=== PATIENT | female | born 1960 | race African-American/Black ===

== ENCOUNTER 2017-06-04 02:46 | Inpatient (IN) ==
[2017-06-04] MEDS ORDERED: FUROSEMIDE 40 MG/4 ML VIAL IV STA (03:06)
[2017-06-04] MEDS ORDERED: FUROSEMIDE 100 MG/10 ML VIAL ONE (03:18)
[2017-06-04 03:20] LABS: ABG Base Excess -11.2 MMOL/L (-2.5-2.5); ABG HCO3 15.7 MMOL/L (20-26); ABG Oxygen Saturation 99.7 % (95-100); ABG TCO2 17.9 MMOL/L (23-27)
[2017-06-04] MEDS ORDERED: MIDAZOLAM 10 MG/2 ML VIAL ONE (03:21)
[2017-06-04 03:25] LABS: ABG PH 7.116 (7.35-7.45)
[2017-06-04] MEDS ORDERED: NITROGLYCERIN DRIP 50 MG/250 ML BOTTLE IV SCH (03:30)
[2017-06-04] MEDS: PROPOFOL 1,000 MG/100 ML BOTTLE IV SCH ×8 (03:43→22:18)
[2017-06-04 03:53] LABS: Alanine Aminotransferase 66 U/L (13-56); Albumin 2.5 G/DL (3.4-5.0); Alkaline Phosphatase 123 U/L (45-117); Aspartate Amino Transferase 70 U/L (0-37); Bilirubin,Total < 0.39 MG/DL (0.2-1.0); Blood Urea Nitrogen 7 MG/DL (7-18); Calcium 7.9 MG/DL (8.5-10.1); Glucose 242 MG/DL (74-106); Osmolality,Calculated 286.3 MOS/KG (273-304); Potassium 3.2 MMOL/L (3.5-5.1); Sodium 141 MMOL/L (136-145)
[2017-06-04 03:57] LABS: Lactic Acid 8.1 MMOL/L (0.4-2.0)
[2017-06-04 04:09] LABS: Basophils # 0.2 10*3/uL (0.0-0.2); Basophils % 0.6 % (0.0-0.8); Eosinophils # 0.7 10*3/uL (0.0-0.87); Eosinophils % 2.9 % (0.00-10.9); Hematocrit 37.7 VOL% (35.7-47.0); Immature Granulocytes % 3.3 %; Immature Granulocytes Absolute 0.81 #; Lymphocytes # 11.1 10*3/uL (1.4-4.0); Lymphocytes % 44.5 % (21.3-54.2); Mean Corpuscular HGB Conc 29.7 GM/DL (32-36); Mean Corpuscular Hemoglobin 23 PG (27-34); Mean Corpuscular Volume 76.2 FL (87-102); Mean Platelet Volume 11.4 FL (9.6-12.0); NRBC # 0.02 10*3/uL; Neutrophils # 10.1 10*3/uL (1.4-7.4); Neutrophils % 40.7 % (38.7-73.9); Platelet Count 387 T/CUMM (130-400); Red Blood Count 4.95 MC/CUMM (3.8-5.5); Red Cell Distribution Width 17.8 % (9.3-17.3); White Blood Count 24.9 T/CUMM (4-12)
[2017-06-04 04:12] LABS: Hemoglobin 11.2 GM/DL (12.0-16.0)
[2017-06-04] MEDS ORDERED: VECURONIUM 10 MG VIAL IV ONE (04:13)
[2017-06-04] MEDS ORDERED: SODIUM CHLORIDE 0.9% 3,950 ML IV ONE (04:33)
[2017-06-04] MEDS ORDERED: VANCOMYCIN INJ 1,000 MG in SODIUM CHLORIDE 0.9% 250 ML IV STA (04:34)
[2017-06-04] MEDS ORDERED: CEFEPIME 2,000 MG in SODIUM CHLORIDE 0.9% 100 ML IV STA (04:34)
[2017-06-04 04:38] LABS: Apearance,Urine CLOUDY (Clear); Bilirubin,Urine Negative (Negative); Blood, Urine Moderate mg/dL (Negative); Glucose,Urine (UA) 150 mg/dL (Negative); Ketones,Urine Negative (Negative); Nitrite,Urine Negative (Negative); Protein,Urine 100 MG/DL; RBC,Urine 259 /HPF (0-4); Squamous Epithelial Cell,Urine Occasional /HPF (0-10); Urine Color Yellow (Yellow); Urine Specific Gravity 1.008 (1.001-1.035); Urine Urobilinogen < 2.0 EU/DL (0.2-1.0); WBC,Urine 11 /HPF (0-6)
[2017-06-04] MEDS ORDERED: CEFEPIME 2,000 MG in SYRINGE 1 EACH IV ONE (05:00)
[2017-06-04] MEDS ORDERED: ONDANSETRON 4 MG/2 ML VIAL IV PRN (05:26)
[2017-06-04] MEDS ORDERED: ALBUTEROL 2.5 MG/3 ML NEB RESP TX PRN (05:26)
[2017-06-04] MEDS ORDERED: VANCOMYCIN 1,000 MG VIAL ONE (05:36)
[2017-06-04 06:17] LABS: Magnesium 2.1 MG/DL (1.8-2.4); Risk Ratio 1.89; Thyroid Stimulating Hormone 11.9 uIU/ml (0.358-3.74); VLDL CHOLESTEROL 21.8 MG/DL
[2017-06-04] MEDS: SODIUM CHLORIDE 0.9% 1,000 ML IV SCH ×2 (06:19→18:07)
[2017-06-04 06:27] LABS: Ferritin 48.3 ng/ml (8-252); Free T4 (Free Thyroxine) 1.03 NG/DL (0.76-1.46); Troponin I Only < 0.015 NG/ML (0.00-0.045)
[2017-06-04] MEDS ORDERED: CEFEPIME 2,000 MG in SODIUM CHLORIDE 0.9% 100 ML IV SCH (06:30)
[2017-06-04] MEDS ORDERED: PIPERACILLIN/TAZOBACTAM 4,500 MG in SODIUM CHLORIDE 0.9% 100 ML IV SCH (06:30)
[2017-06-04 06:36] LABS: Band Neutrophils 3 % (0-10); Eosinophils 5 % (0-10); Lymphocytes 44 % (20-55); Myelocytes 3 %; Segmented Neutrophils 40 % (50-85); Total Cells Counted 100
[2017-06-04 06:37] LABS: Anisocytosis 1+; Platelet Estimate Normal
[2017-06-04 07:21] LABS: INR 0.9
[2017-06-04] MEDS: ALBUTEROL/IPRATROPIUM 3 ML NEB RESP TX SCH ×3 (08:13→19:58)
[2017-06-04] MEDS ORDERED: GLUCAGON 1 MG VIAL IM PRN (08:22)
[2017-06-04 08:38] LABS: HIV Antigen/Antibody Result Nonreactive (Nonreactive)
[2017-06-04 08:48] LABS: Lactic Acid 2.8 MMOL/L (0.4-2.0)
[2017-06-04 08:58] LABS: Calcium 7.4 MG/DL (8.5-10.1); Magnesium 1.9 MG/DL (1.8-2.4); Osmolality,Calculated 282.3 MOS/KG (273-304); Potassium 3.4 MMOL/L (3.5-5.1)
[2017-06-04] MEDS ORDERED: FUROSEMIDE 40 MG/4 ML VIAL IV SCH (09:00)
[2017-06-04 09:06] LABS: Troponin I Only 0.086 NG/ML (0.00-0.045)
[2017-06-04] MEDS: niCARdipine INJ 25 MG in SODIUM CHLORIDE 0.9% 240 ML IV SCH (10:35)
[2017-06-04] MEDS: CISATRACURIUM 200 MG in SODIUM CHLORIDE 0.9% 100 ML IV SCH (10:48)
[2017-06-04 11:30] LABS: ABG Base Excess 0.7 MMOL/L (-2.5-2.5); ABG HCO3 25.1 MMOL/L (20-26); ABG Oxygen Saturation 99.4 % (95-100); ABG PCO2 37.9 MM HG (35-48); ABG PH 7.426 (7.35-7.45); ABG TCO2 22.2 MMOL/L (23-27)
[2017-06-04] MEDS: VANCOMYCIN INJ 2,000 MG in SODIUM CHLORIDE 0.9% 500 ML IV SCH ×2 (11:33→23:47)
[2017-06-04 11:47] LABS: Basophils % 0.1 % (0.0-0.8); Hematocrit 37.1 VOL% (35.7-47.0); Hemoglobin 11.4 GM/DL (12.0-16.0); Immature Granulocytes % 0.6 %; Immature Granulocytes Absolute 0.12 #; Lymphocytes # 1.1 10*3/uL (1.4-4.0); Lymphocytes % 5.2 % (21.3-54.2); Mean Corpuscular HGB Conc 30.7 GM/DL (32-36); Mean Corpuscular Hemoglobin 23 PG (27-34); Mean Corpuscular Volume 73.2 FL (87-102); Mean Platelet Volume 10.7 FL (9.6-12.0); Monocytes # 0.9 10*3/uL (0.11-0.8); Monocytes % 4.2 % (1.7-12.7); Neutrophils # 18.7 10*3/uL (1.4-7.4); Neutrophils % 89.9 % (38.7-73.9); Platelet Count 334 T/CUMM (130-400); Red Blood Count 5.07 MC/CUMM (3.8-5.5); Red Cell Distribution Width 17.9 % (9.3-17.3); White Blood Count 20.8 T/CUMM (4-12)
[2017-06-04 12:00] LABS: PT Patient Result 10.3 SECS; Partial Thromboplastin Time 26.5 SECS (0-40)
[2017-06-04] MEDS: PIPERACILLIN/TAZOBACTAM 3.375 MG in SODIUM CHLORIDE 0.9% 100 ML IV SCH ×3 (12:00→20:42)
[2017-06-04] MEDS: POTASSIUM CHLORIDE RIDER 20 MEQ in PREMIX 1 EACH IV PRN ×3 (12:07→17:28)
[2017-06-04 12:28] LABS: Alanine Aminotransferase 101 U/L (13-56); Albumin 2.7 G/DL (3.4-5.0); Alkaline Phosphatase 120 U/L (45-117); Amylase 31 U/L (25-115); Aspartate Amino Transferase 65 U/L (0-37); Blood Urea Nitrogen 8 MG/DL (7-18); Calcium 7.9 MG/DL (8.5-10.1); Glucose 143 MG/DL (74-106); Magnesium 1.7 MG/DL (1.8-2.4); Osmolality,Calculated 280.3 MOS/KG (273-304); Potassium 3.5 MMOL/L (3.5-5.1); Sodium 141 MMOL/L (136-145); Total Protein 6.9 G/DL (6.4-8.3)
[2017-06-04 12:31] LABS: Troponin I Only 0.111 NG/ML (0.00-0.045)
[2017-06-04 13:29] LABS: Hypochromasia 2+; Lymphocytes 5 % (20-55); Macrocytosis 1+; Platelet Estimate Adequate; Segmented Neutrophils 90 % (50-85); Total Cells Counted 100
[2017-06-04] MEDS: INSULIN LISPRO 100 UNIT/ML SUBCUT SCH ×5 (14:25→23:29)
[2017-06-04] MEDS ORDERED: INSULIN LISPRO 100 UNIT/ML SUBCUT SCH (14:30)
[2017-06-04] MEDS: NITROGLYCERIN 2% OINT 1 INCH/GM PACK TOP SCH ×2 (14:32→15:11)
[2017-06-04] MEDS: PANTOPRAZOLE 40 MG VIAL IV SCH (15:20)
[2017-06-04] MEDS: ENOXAPARIN 40 MG/0.4 ML SYRINGE SUBCUT SCH (15:22)
[2017-06-04] MEDS: FUROSEMIDE 40 MG/4 ML VIAL IV SCH (15:23)
[2017-06-04] MEDS: HEPARIN/NACL 0.9% 2 UNITS/ML 500 ML IV SCH (15:25)
[2017-06-04 16:45] LABS: Basophils % 0.1 % (0.0-0.8); Hematocrit 37.7 VOL% (35.7-47.0); Hemoglobin 11.9 GM/DL (12.0-16.0); Immature Granulocytes % 0.6 %; Lymphocytes # 1.8 10*3/uL (1.4-4.0); Lymphocytes % 10.4 % (21.3-54.2); Mean Corpuscular HGB Conc 31.6 GM/DL (32-36); Mean Corpuscular Hemoglobin 23 PG (27-34); Mean Corpuscular Volume 72.8 FL (87-102); Mean Platelet Volume 9.9 FL (9.6-12.0); Monocytes # 0.6 10*3/uL (0.11-0.8); Monocytes % 3.4 % (1.7-12.7); Neutrophils # 14.7 10*3/uL (1.4-7.4); Neutrophils % 85.5 % (38.7-73.9); Platelet Count 311 T/CUMM (130-400); Red Blood Count 5.18 MC/CUMM (3.8-5.5); Red Cell Distribution Width 18.1 % (9.3-17.3); White Blood Count 17.2 T/CUMM (4-12)
[2017-06-04 16:55] LABS: PT Patient Result 10.5 SECS; Partial Thromboplastin Time 27.7 SECS (0-40)
[2017-06-04 17:20] LABS: Calcium 7.9 MG/DL (8.5-10.1); Magnesium 1.8 MG/DL (1.8-2.4); Osmolality,Calculated 281.3 MOS/KG (273-304); Potassium 3.3 MMOL/L (3.5-5.1)
[2017-06-04 17:24] LABS: Troponin I Only 0.079 NG/ML (0.00-0.045)
[2017-06-04] MEDS: MINERAL OIL/PETROLATUM OPH OINT 3.5 GM TUBE BOTH EYES SCH (20:41)
[2017-06-04 23:21] LABS: Basophils % 0.2 % (0.0-0.8); Eosinophils % 0.1 % (0.00-10.9); Hematocrit 35.7 VOL% (35.7-47.0); Hemoglobin 11.1 GM/DL (12.0-16.0); Immature Granulocytes % 0.5 %; Immature Granulocytes Absolute 0.07 #; Lymphocytes # 1.9 10*3/uL (1.4-4.0); Lymphocytes % 12.3 % (21.3-54.2); Mean Corpuscular HGB Conc 31.1 GM/DL (32-36); Mean Corpuscular Hemoglobin 23 PG (27-34); Mean Corpuscular Volume 73.2 FL (87-102); Monocytes # 0.9 10*3/uL (0.11-0.8); Monocytes % 5.7 % (1.7-12.7); Neutrophils # 12.5 10*3/uL (1.4-7.4); Neutrophils % 81.2 % (38.7-73.9); Platelet Count 297 T/CUMM (130-400); Red Blood Count 4.88 MC/CUMM (3.8-5.5); Red Cell Distribution Width 17.6 % (9.3-17.3); White Blood Count 15.4 T/CUMM (4-12)
[2017-06-04 23:33] LABS: PT Patient Result 10.4 SECS; Partial Thromboplastin Time 26.9 SECS (0-40)
[2017-06-04 23:34] LABS: Apearance,Urine Slightly Hazy (Clear); Bilirubin,Urine Negative (Negative); Blood, Urine Negative (Negative); Glucose,Urine (UA) Negative (Negative); Ketones,Urine Negative (Negative); Nitrite,Urine Negative (Negative); Protein,Urine Negative; RBC,Urine 1 /HPF (0-4); Urine Color Yellow (Yellow); Urine Specific Gravity 1.017 (1.001-1.035); Urine Urobilinogen < 2.0 EU/DL (0.2-1.0); WBC,Urine 3 /HPF (0-6)
[2017-06-05 00:19] LABS: Calcium 7.4 MG/DL (8.5-10.1); Magnesium 1.7 MG/DL (1.8-2.4); Osmolality,Calculated 282.1 MOS/KG (273-304); Potassium 2.9 MMOL/L (3.5-5.1)
[2017-06-05 00:23] LABS: Troponin I Only 0.038 NG/ML (0.00-0.045)
[2017-06-05] MEDS: PROPOFOL 1,000 MG/100 ML BOTTLE IV SCH ×10 (00:23→23:33)
[2017-06-05] MEDS: POTASSIUM CHLORIDE RIDER 20 MEQ in PREMIX 1 EACH IV PRN ×5 (00:26→13:30)
[2017-06-05] MEDS: ALBUTEROL/IPRATROPIUM 3 ML NEB RESP TX SCH ×4 (00:50→19:42)
[2017-06-05] MEDS: INSULIN LISPRO 100 UNIT/ML SUBCUT SCH ×5 (03:23→20:13)
[2017-06-05] MEDS: fentaNYL 100 MCG/2 ML VIAL IV PRN ×4 (03:31→22:15)
[2017-06-05] MEDS: PIPERACILLIN/TAZOBACTAM 3.375 MG in SODIUM CHLORIDE 0.9% 100 ML IV SCH ×3 (04:15→19:30)
[2017-06-05] MEDS: SODIUM CHLORIDE 0.9% 1,000 ML IV SCH ×2 (04:15→17:30)
[2017-06-05 05:13] LABS: ABG Base Excess -0.6 MMOL/L (-2.5-2.5); ABG HCO3 23.9 MMOL/L (20-26); ABG Oxygen Saturation 99.5 % (95-100); ABG PCO2 30.5 MM HG (35-48); ABG PH 7.471 (7.35-7.45); ABG TCO2 19.9 MMOL/L (23-27)
[2017-06-05 05:18] LABS: Basophils % 0.2 % (0.0-0.8); Eosinophils % 0.1 % (0.00-10.9); Hematocrit 32.8 VOL% (35.7-47.0); Hemoglobin 10.5 GM/DL (12.0-16.0); Immature Granulocytes % 0.5 %; Immature Granulocytes Absolute 0.07 #; Lymphocytes # 1.6 10*3/uL (1.4-4.0); Lymphocytes % 12.2 % (21.3-54.2); Mean Corpuscular Hemoglobin 23 PG (27-34); Mean Corpuscular Volume 72.7 FL (87-102); Mean Platelet Volume 10.6 FL (9.6-12.0); Monocytes # 0.8 10*3/uL (0.11-0.8); Monocytes % 6.3 % (1.7-12.7); Neutrophils # 10.4 10*3/uL (1.4-7.4); Neutrophils % 80.7 % (38.7-73.9); Platelet Count 288 T/CUMM (130-400); Red Blood Count 4.51 MC/CUMM (3.8-5.5); Red Cell Distribution Width 17.8 % (9.3-17.3); White Blood Count 12.9 T/CUMM (4-12)
[2017-06-05 05:23] LABS: PT Patient Result 10.5 SECS; Partial Thromboplastin Time 26.5 SECS (0-40)
[2017-06-05 05:53] LABS: Albumin 2.4 G/DL (3.4-5.0); Bilirubin,Total 0.8 MG/DL (0.2-1.0); Calcium 7.2 MG/DL (8.5-10.1); Potassium 3.4 MMOL/L (3.5-5.1); Total Protein 5.9 G/DL (6.4-8.3)
[2017-06-05 06:01] LABS: CKMB % 3.7 %; Troponin I Only 0.03 NG/ML (0.00-0.045)
[2017-06-05 07:09] LABS: Magnesium 1.9 MG/DL (1.8-2.4)
[2017-06-05] MEDS: niCARdipine INJ 25 MG in SODIUM CHLORIDE 0.9% 240 ML IV SCH (08:30)
[2017-06-05] MEDS: FUROSEMIDE 40 MG/4 ML VIAL IV SCH (09:00)
[2017-06-05 10:44] LABS: Basophils % 0.3 % (0.0-0.8); Eosinophils % 0.3 % (0.00-10.9); Hematocrit 33.1 VOL% (35.7-47.0); Hemoglobin 10.3 GM/DL (12.0-16.0); Immature Granulocytes % 0.5 %; Immature Granulocytes Absolute 0.06 #; Lymphocytes # 1.4 10*3/uL (1.4-4.0); Lymphocytes % 12.2 % (21.3-54.2); Mean Corpuscular HGB Conc 31.1 GM/DL (32-36); Mean Corpuscular Hemoglobin 22 PG (27-34); Mean Corpuscular Volume 71.8 FL (87-102); Mean Platelet Volume 10.3 FL (9.6-12.0); Monocytes # 0.7 10*3/uL (0.11-0.8); Monocytes % 6.1 % (1.7-12.7); Neutrophils # 9.4 10*3/uL (1.4-7.4); Neutrophils % 80.6 % (38.7-73.9); Platelet Count 276 T/CUMM (130-400); Red Blood Count 4.61 MC/CUMM (3.8-5.5); Red Cell Distribution Width 17.8 % (9.3-17.3); White Blood Count 11.6 T/CUMM (4-12)
[2017-06-05] MEDS: VANCOMYCIN INJ 2,000 MG in SODIUM CHLORIDE 0.9% 500 ML IV SCH ×2 (10:45→23:31)
[2017-06-05 10:57] LABS: PT Patient Result 10.4 SECS; Partial Thromboplastin Time 28.2 SECS (0-40)
[2017-06-05 11:01] LABS: Calcium 7.2 MG/DL (8.5-10.1); Magnesium 1.7 MG/DL (1.8-2.4); Potassium 3.2 MMOL/L (3.5-5.1)
[2017-06-05] MEDS ORDERED: ASPIRIN 300 MG SUPP RECTAL SCH (11:30)
[2017-06-05] MEDS: CISATRACURIUM 200 MG in SODIUM CHLORIDE 0.9% 100 ML IV SCH (13:15)
[2017-06-05] MEDS: ASPIRIN 325 MG TABLET PO SCH (13:15)
[2017-06-05 13:37] LABS: ABG Base Excess -0.8 MMOL/L (-2.5-2.5); ABG HCO3 23.8 MMOL/L (20-26); ABG Oxygen Saturation 99.4 % (95-100); ABG PCO2 27.6 MM HG (35-48); ABG PH 7.499 (7.35-7.45); ABG TCO2 19.3 MMOL/L (23-27); Glucose Heart Surgery 135 MG/DL (74-106); Hematocrit Heart Surgery 32.1 PERCENT (37-47); Hemoglobin Heart Surgery 10.4 G/DL (12.0-16.0); Potassium Heart/CVR 3.1 MMOL/L (3.5-5.1)
[2017-06-05] MEDS: ENOXAPARIN 40 MG/0.4 ML SYRINGE SUBCUT SCH (15:00)
[2017-06-05] MEDS: PANTOPRAZOLE 40 MG VIAL IV SCH (15:00)
[2017-06-05] MEDS: HEPARIN/NACL 0.9% 2 UNITS/ML 500 ML IV SCH (15:20)
[2017-06-05 17:11] LABS: Basophils % 0.2 % (0.0-0.8); Eosinophils % 0.4 % (0.00-10.9); Hematocrit 32.2 VOL% (35.7-47.0); Hemoglobin 10.2 GM/DL (12.0-16.0); Immature Granulocytes % 0.5 %; Immature Granulocytes Absolute 0.06 #; Lymphocytes # 1.6 10*3/uL (1.4-4.0); Lymphocytes % 14.1 % (21.3-54.2); Mean Corpuscular HGB Conc 31.7 GM/DL (32-36); Mean Corpuscular Hemoglobin 23 PG (27-34); Mean Corpuscular Volume 72.4 FL (87-102); Mean Platelet Volume 10.4 FL (9.6-12.0); Monocytes # 0.8 10*3/uL (0.11-0.8); Monocytes % 6.7 % (1.7-12.7); Neutrophils # 8.9 10*3/uL (1.4-7.4); Neutrophils % 78.1 % (38.7-73.9); Platelet Count 261 T/CUMM (130-400); Red Blood Count 4.45 MC/CUMM (3.8-5.5); Red Cell Distribution Width 18.1 % (9.3-17.3); White Blood Count 11.4 T/CUMM (4-12)
[2017-06-05 17:24] LABS: PT Patient Result 10.3 SECS; Partial Thromboplastin Time 29.4 SECS (0-40)
[2017-06-05 17:32] LABS: Calcium 7.2 MG/DL (8.5-10.1); Magnesium 1.7 MG/DL (1.8-2.4); Osmolality,Calculated 288.6 MOS/KG (273-304); Potassium 3.4 MMOL/L (3.5-5.1)
[2017-06-05] MEDS ORDERED: MAGNESIUM SULF RIDER 4 GM in PREMIX 1 EACH IV PRN (17:42)
[2017-06-05] MEDS ORDERED: MAGNESIUM SULF RIDER 2 GM in PREMIX 1 EACH IV PRN (17:42)
[2017-06-05] MEDS ORDERED: MAGNESIUM SULF RIDER 1 GM in PREMIX 1 EACH IV PRN (17:44)
[2017-06-05] MEDS: MINERAL OIL/PETROLATUM OPH OINT 3.5 GM TUBE BOTH EYES SCH (21:09)
[2017-06-05 23:13] LABS: Basophils % 0.3 % (0.0-0.8); Eosinophils # 0.1 10*3/uL (0.0-0.87); Eosinophils % 0.5 % (0.00-10.9); Hematocrit 32.4 VOL% (35.7-47.0); Immature Granulocytes % 0.6 %; Immature Granulocytes Absolute 0.07 #; Lymphocytes # 1.6 10*3/uL (1.4-4.0); Lymphocytes % 13.5 % (21.3-54.2); Mean Corpuscular HGB Conc 30.9 GM/DL (32-36); Mean Corpuscular Hemoglobin 23 PG (27-34); Mean Corpuscular Volume 73.3 FL (87-102); Mean Platelet Volume 10.7 FL (9.6-12.0); Monocytes # 0.8 10*3/uL (0.11-0.8); Monocytes % 6.5 % (1.7-12.7); Neutrophils % 78.6 % (38.7-73.9); Platelet Count 273 T/CUMM (130-400); Red Blood Count 4.42 MC/CUMM (3.8-5.5); Red Cell Distribution Width 18.5 % (9.3-17.3); White Blood Count 11.5 T/CUMM (4-12)
[2017-06-05 23:41] LABS: PT Patient Result 10.3 SECS; Partial Thromboplastin Time 28.7 SECS (0-40)
[2017-06-06] MEDS: INSULIN LISPRO 100 UNIT/ML SUBCUT SCH ×6 (00:07→20:00)
[2017-06-06 00:09] LABS: Calcium 7.3 MG/DL (8.5-10.1); Magnesium 2.1 MG/DL (1.8-2.4); Osmolality,Calculated 288.6 MOS/KG (273-304); Potassium 3.5 MMOL/L (3.5-5.1)
[2017-06-06] MEDS: ALBUTEROL/IPRATROPIUM 3 ML NEB RESP TX SCH ×4 (00:14→20:15)
[2017-06-06] MEDS: PROPOFOL 1,000 MG/100 ML BOTTLE IV SCH ×7 (02:20→22:32)
[2017-06-06] MEDS: fentaNYL 100 MCG/2 ML VIAL IV PRN ×4 (03:40→22:30)
[2017-06-06 05:03] LABS: ABG Base Excess -3.3 MMOL/L (-2.5-2.5); ABG HCO3 21.8 MMOL/L (20-26); ABG Oxygen Saturation 99.6 % (95-100); ABG PCO2 31.8 MM HG (35-48); ABG PH 7.411 (7.35-7.45); ABG TCO2 16.8 MMOL/L (23-27)
[2017-06-06] MEDS: PIPERACILLIN/TAZOBACTAM 3.375 MG in SODIUM CHLORIDE 0.9% 100 ML IV SCH ×3 (05:08→20:14)
[2017-06-06 05:25] LABS: INR 0.9; Partial Thromboplastin Time 30.3 SECS (0-40)
[2017-06-06 05:28] LABS: Lactic Acid 2.4 MMOL/L (0.4-2.0)
[2017-06-06] MEDS: SODIUM CHLORIDE 0.9% 1,000 ML IV SCH (06:01)
[2017-06-06 06:33] LABS: Calcium 7.3 MG/DL (8.5-10.1); Magnesium 2.1 MG/DL (1.8-2.4); Osmolality,Calculated 288.6 MOS/KG (273-304); Potassium 3.7 MMOL/L (3.5-5.1)
[2017-06-06 06:36] LABS: Basophils % 0.3 % (0.0-0.8); Eosinophils # 0.1 10*3/uL (0.0-0.87); Eosinophils % 0.4 % (0.00-10.9); Hematocrit 33.2 VOL% (35.7-47.0); Hemoglobin 10.1 GM/DL (12.0-16.0); Immature Granulocytes % 0.7 %; Immature Granulocytes Absolute 0.08 #; Lymphocytes # 1.4 10*3/uL (1.4-4.0); Lymphocytes % 11.8 % (21.3-54.2); Mean Corpuscular HGB Conc 30.4 GM/DL (32-36); Mean Corpuscular Hemoglobin 22 PG (27-34); Mean Corpuscular Volume 73.6 FL (87-102); Mean Platelet Volume 11.2 FL (9.6-12.0); Monocytes # 0.8 10*3/uL (0.11-0.8); Monocytes % 6.9 % (1.7-12.7); Neutrophils # 9.6 10*3/uL (1.4-7.4); Neutrophils % 79.9 % (38.7-73.9); Platelet Count 291 T/CUMM (130-400); Red Blood Count 4.51 MC/CUMM (3.8-5.5); Red Cell Distribution Width 18.7 % (9.3-17.3)
[2017-06-06] MEDS: FUROSEMIDE 40 MG/4 ML VIAL IV SCH (09:00)
[2017-06-06] MEDS: ASPIRIN 325 MG TABLET PO SCH (09:00)
[2017-06-06 09:50] LABS: Lactic Acid 4.6 MMOL/L (0.4-2.0)
[2017-06-06 10:10] LABS: ABG Base Excess -3.2 MMOL/L (-2.5-2.5); ABG HCO3 21.8 MMOL/L (20-26); ABG Oxygen Saturation 99.3 % (95-100); ABG PCO2 31.9 MM HG (35-48); ABG PH 7.418 (7.35-7.45); ABG TCO2 18.8 MMOL/L (23-27)
[2017-06-06 10:10] LABS: Basophils % 0.3 % (0.0-0.8); Eosinophils % 0.4 % (0.00-10.9); Hematocrit 33.2 VOL% (35.7-47.0); Hemoglobin 10.1 GM/DL (12.0-16.0); Immature Granulocytes % 0.5 %; Lymphocytes # 1.4 10*3/uL (1.4-4.0); Lymphocytes % 11.4 % (21.3-54.2); Mean Corpuscular HGB Conc 30.4 GM/DL (32-36); Mean Corpuscular Hemoglobin 22 PG (27-34); Mean Corpuscular Volume 73.6 FL (87-102); Mean Platelet Volume 10.4 FL (9.6-12.0); Monocytes # 0.8 10*3/uL (0.11-0.8); Monocytes % 6.2 % (1.7-12.7); Neutrophils # 10.1 10*3/uL (1.4-7.4); Neutrophils % 81.2 % (38.7-73.9); Platelet Count 295 T/CUMM (130-400); Red Blood Count 4.51 MC/CUMM (3.8-5.5); Red Cell Distribution Width 18.8 % (9.3-17.3); White Blood Count 12.5 T/CUMM (4-12)
[2017-06-06 10:11] LABS: Eosinophils # 0.1 10*3/uL (0.0-0.87); Immature Granulocytes Absolute 0.06 #
[2017-06-06 10:21] LABS: PT Patient Result 10.2 SECS; Partial Thromboplastin Time 28.5 SECS (0-40)
[2017-06-06 10:49] LABS: Albumin 2.3 G/DL (3.4-5.0); Bilirubin,Total 0.4 MG/DL (0.2-1.0); CKMB % 2.3 %; Calcium 7.3 MG/DL (8.5-10.1); Magnesium 1.9 MG/DL (1.8-2.4); Osmolality,Calculated 286.7 MOS/KG (273-304); Potassium 3.8 MMOL/L (3.5-5.1); Troponin I Only 0.021 NG/ML (0.00-0.045)
[2017-06-06] MEDS: VANCOMYCIN INJ 2,000 MG in SODIUM CHLORIDE 0.9% 500 ML IV SCH (11:00)
[2017-06-06] MEDS: niCARdipine INJ 25 MG in SODIUM CHLORIDE 0.9% 240 ML IV SCH (12:20)
[2017-06-06] MEDS: CISATRACURIUM 200 MG in SODIUM CHLORIDE 0.9% 100 ML IV SCH (13:00)
[2017-06-06] MEDS: HEPARIN/NACL 0.9% 2 UNITS/ML 500 ML IV SCH (14:30)
[2017-06-06] MEDS: PANTOPRAZOLE 40 MG VIAL IV SCH (15:00)
[2017-06-06] MEDS: ENOXAPARIN 40 MG/0.4 ML SYRINGE SUBCUT SCH (15:00)
[2017-06-06] MEDS: MINERAL OIL/PETROLATUM OPH OINT 3.5 GM TUBE BOTH EYES SCH (20:59)
[2017-06-07] MEDS: fentaNYL 100 MCG/2 ML VIAL IV PRN ×2 (00:30→02:08)
[2017-06-07] MEDS: INSULIN LISPRO 100 UNIT/ML SUBCUT SCH ×6 (00:35→21:57)
[2017-06-07] MEDS: ALBUTEROL/IPRATROPIUM 3 ML NEB RESP TX SCH ×4 (00:47→20:05)
[2017-06-07] MEDS: PROPOFOL 1,000 MG/100 ML BOTTLE IV SCH ×9 (01:18→22:31)
[2017-06-07 02:59] LABS: ABG Base Excess -3.1 MMOL/L (-2.5-2.5); ABG HCO3 21.9 MMOL/L (20-26); ABG Oxygen Saturation 98.8 % (95-100); ABG PCO2 35.2 MM HG (35-48); ABG PH 7.388 (7.35-7.45); ABG TCO2 18.5 MMOL/L (23-27)
[2017-06-07 03:12] LABS: Basophils # 0.1 10*3/uL (0.0-0.2); Basophils % 0.4 % (0.0-0.8); Eosinophils % 0.3 % (0.00-10.9); Hematocrit 31.9 VOL% (35.7-47.0); Hemoglobin 9.7 GM/DL (12.0-16.0); Immature Granulocytes % 0.5 %; Immature Granulocytes Absolute 0.07 #; Lymphocytes # 2.2 10*3/uL (1.4-4.0); Lymphocytes % 16.6 % (21.3-54.2); Mean Corpuscular HGB Conc 30.4 GM/DL (32-36); Mean Corpuscular Hemoglobin 22 PG (27-34); Mean Corpuscular Volume 73.5 FL (87-102); Mean Platelet Volume 10.4 FL (9.6-12.0); Monocytes # 1.4 10*3/uL (0.11-0.8); Monocytes % 10.6 % (1.7-12.7); Neutrophils # 9.7 10*3/uL (1.4-7.4); Neutrophils % 71.6 % (38.7-73.9); Platelet Count 299 T/CUMM (130-400); Red Blood Count 4.34 MC/CUMM (3.8-5.5); White Blood Count 13.5 T/CUMM (4-12)
[2017-06-07 03:37] LABS: Albumin 2.3 G/DL (3.4-5.0); Bilirubin,Total 0.5 MG/DL (0.2-1.0); Calcium 7.3 MG/DL (8.5-10.1); Magnesium 1.8 MG/DL (1.8-2.4); Osmolality,Calculated 286.7 MOS/KG (273-304); Potassium 3.8 MMOL/L (3.5-5.1)
[2017-06-07] MEDS: PIPERACILLIN/TAZOBACTAM 3.375 MG in SODIUM CHLORIDE 0.9% 100 ML IV SCH ×3 (04:24→20:24)
[2017-06-07] MEDS: niCARdipine INJ 25 MG in SODIUM CHLORIDE 0.9% 240 ML IV SCH ×2 (07:33→22:54)
[2017-06-07] MEDS: FUROSEMIDE 40 MG/4 ML VIAL IV SCH (09:15)
[2017-06-07] MEDS: ASPIRIN CHEW 81 MG TABLET PO SCH (09:54)
[2017-06-07] MEDS: CISATRACURIUM 200 MG in SODIUM CHLORIDE 0.9% 100 ML IV SCH (10:01)
[2017-06-07] MEDS: VANCOMYCIN INJ 2,000 MG in SODIUM CHLORIDE 0.9% 500 ML IV SCH (10:34)
[2017-06-07] MEDS: HEPARIN/NACL 0.9% 2 UNITS/ML 500 ML IV SCH (14:05)
[2017-06-07] MEDS: ENOXAPARIN 40 MG/0.4 ML SYRINGE SUBCUT SCH (16:00)
[2017-06-07] MEDS: PANTOPRAZOLE 40 MG VIAL IV SCH (16:02)
[2017-06-07] MEDS: DEXTROSE 50% 25 GM/50 ML VIAL IV PRN ×2 (16:35→20:34)
[2017-06-07] MEDS ORDERED: VALPROIC ACID INJ 1,000 MG in SODIUM CHLORIDE 0.9% 100 ML IV ONE (17:00)
[2017-06-07] MEDS: MINERAL OIL/PETROLATUM OPH OINT 3.5 GM TUBE BOTH EYES SCH (22:00)
[2017-06-07] MEDS ORDERED: LORazepam 2 MG/1 ML VIAL IV ONE (22:29)
[2017-06-07] MEDS ORDERED: SODIUM CHLORIDE 0.9% IV ONE (22:43)
[2017-06-07] MEDS ORDERED: PHENOBARBITAL IV ONE (22:43)
[2017-06-08] MEDS: INSULIN LISPRO 100 UNIT/ML SUBCUT SCH ×6 (00:15→22:14)
[2017-06-08] MEDS: PROPOFOL 1,000 MG/100 ML BOTTLE IV SCH ×7 (00:53→19:12)
[2017-06-08] MEDS: ALBUTEROL/IPRATROPIUM 3 ML NEB RESP TX SCH ×4 (01:35→19:46)
[2017-06-08] MEDS: VALPROIC ACID INJ 750 MG in SODIUM CHLORIDE 0.9% 100 ML IV SCH ×3 (02:44→17:15)
[2017-06-08] MEDS: LORazepam 2 MG/1 ML VIAL IV PRN (04:05)
[2017-06-08 04:42] LABS: ABG Base Excess -2.6 MMOL/L (-2.5-2.5); ABG HCO3 22.2 MMOL/L (20-26); ABG Oxygen Saturation 99.4 % (95-100); ABG PCO2 31.4 MM HG (35-48); ABG PH 7.431 (7.35-7.45); ABG TCO2 18.8 MMOL/L (23-27)
[2017-06-08] MEDS: PIPERACILLIN/TAZOBACTAM 3.375 MG in SODIUM CHLORIDE 0.9% 100 ML IV SCH ×3 (04:46→22:26)
[2017-06-08 05:07] LABS: Basophils # 0.1 10*3/uL (0.0-0.2); Basophils % 0.6 % (0.0-0.8); Eosinophils # 0.3 10*3/uL (0.0-0.87); Eosinophils % 2.5 % (0.00-10.9); Hematocrit 29.5 VOL% (35.7-47.0); Hemoglobin 9.2 GM/DL (12.0-16.0); Immature Granulocytes % 0.3 %; Immature Granulocytes Absolute 0.04 #; Lymphocytes # 3.3 10*3/uL (1.4-4.0); Lymphocytes % 26.7 % (21.3-54.2); Mean Corpuscular HGB Conc 31.2 GM/DL (32-36); Mean Corpuscular Hemoglobin 23 PG (27-34); Mean Corpuscular Volume 72.8 FL (87-102); Mean Platelet Volume 10.9 FL (9.6-12.0); Monocytes # 1.5 10*3/uL (0.11-0.8); Monocytes % 11.9 % (1.7-12.7); Neutrophils # 7.1 10*3/uL (1.4-7.4); Platelet Count 282 T/CUMM (130-400); Red Blood Count 4.05 MC/CUMM (3.8-5.5); Red Cell Distribution Width 18.8 % (9.3-17.3); White Blood Count 12.2 T/CUMM (4-12)
[2017-06-08 05:28] LABS: Albumin 2.3 G/DL (3.4-5.0); Bilirubin,Total 0.4 MG/DL (0.2-1.0); Calcium 7.7 MG/DL (8.5-10.1); Magnesium 1.9 MG/DL (1.8-2.4); Osmolality,Calculated 286.7 MOS/KG (273-304); Potassium 3.3 MMOL/L (3.5-5.1)
[2017-06-08] MEDS: niCARdipine INJ 25 MG in SODIUM CHLORIDE 0.9% 240 ML IV SCH (08:57)
[2017-06-08] MEDS: ASPIRIN CHEW 81 MG TABLET PO SCH (08:57)
[2017-06-08] MEDS: POTASSIUM CHLORIDE RIDER 20 MEQ in PREMIX 1 EACH IV PRN ×2 (08:58→10:09)
[2017-06-08] MEDS: FUROSEMIDE 40 MG/4 ML VIAL IV SCH (08:58)
[2017-06-08] MEDS ORDERED: LACOSAMIDE INJ 200 MG in SODIUM CHLORIDE 0.9% 50 ML IV ONE (10:30)
[2017-06-08] MEDS: PHENobarbital 130 MG/1 ML VIAL IV SCH ×2 (11:28→22:33)
[2017-06-08] MEDS: VANCOMYCIN INJ 2,000 MG in SODIUM CHLORIDE 0.9% 500 ML IV SCH (12:48)
[2017-06-08] MEDS: HEPARIN/NACL 0.9% 2 UNITS/ML 500 ML IV SCH (14:29)
[2017-06-08] MEDS: PANTOPRAZOLE 40 MG VIAL IV SCH (16:01)
[2017-06-08] MEDS: ENOXAPARIN 40 MG/0.4 ML SYRINGE SUBCUT SCH (16:01)
[2017-06-08] MEDS: LACOSAMIDE INJ 150 MG in SODIUM CHLORIDE 0.9% 50 ML IV SCH (20:59)
[2017-06-08] MEDS: MINERAL OIL/PETROLATUM OPH OINT 3.5 GM TUBE BOTH EYES SCH (21:00)
[2017-06-08] MEDS: DEXTROSE 50% 25 GM/50 ML VIAL IV PRN (21:19)
[2017-06-09] MEDS: niCARdipine INJ 25 MG in SODIUM CHLORIDE 0.9% 240 ML IV SCH ×4 (00:26→16:55)
[2017-06-09] MEDS: PROPOFOL 1,000 MG/100 ML BOTTLE IV SCH ×5 (00:27→23:36)
[2017-06-09] MEDS: INSULIN LISPRO 100 UNIT/ML SUBCUT SCH ×7 (00:28→23:23)
[2017-06-09] MEDS: ALBUTEROL/IPRATROPIUM 3 ML NEB RESP TX SCH ×4 (01:10→18:12)
[2017-06-09] MEDS: VALPROIC ACID INJ 750 MG in SODIUM CHLORIDE 0.9% 100 ML IV SCH ×3 (03:00→18:30)
[2017-06-09 05:53] LABS: ABG Base Excess -2.9 MMOL/L (-2.5-2.5); ABG HCO3 19.3 MMOL/L (20-26); ABG Oxygen Saturation 98.7 % (95-100); ABG PCO2 25.4 MM HG (35-48); ABG PH 7.499 (7.35-7.45); ABG PO2 154.9 MM HG (80-95); ABG TCO2 20.1 MMOL/L (23-27)
[2017-06-09 05:56] LABS: Basophils % 0.4 % (0.0-0.8); Eosinophils # 0.5 10*3/uL (0.0-0.87); Eosinophils % 4.6 % (0.00-10.9); Hematocrit 27.3 VOL% (35.7-47.0); Hemoglobin 8.6 GM/DL (12.0-16.0); Immature Granulocytes % 0.3 %; Immature Granulocytes Absolute 0.03 #; Lymphocytes # 2.5 10*3/uL (1.4-4.0); Lymphocytes % 22.5 % (21.3-54.2); Mean Corpuscular HGB Conc 31.5 GM/DL (32-36); Mean Corpuscular Hemoglobin 23 PG (27-34); Mean Corpuscular Volume 72.2 FL (87-102); Mean Platelet Volume 11.1 FL (9.6-12.0); Monocytes # 1.1 10*3/uL (0.11-0.8); Monocytes % 9.6 % (1.7-12.7); Neutrophils % 62.6 % (38.7-73.9); Platelet Count 242 T/CUMM (130-400); Red Blood Count 3.78 MC/CUMM (3.8-5.5); Red Cell Distribution Width 18.6 % (9.3-17.3); White Blood Count 11.1 T/CUMM (4-12)
[2017-06-09 06:32] LABS: Albumin 1.9 G/DL (3.4-5.0); Bilirubin,Total 0.5 MG/DL (0.2-1.0); Calcium 7.7 MG/DL (8.5-10.1); Magnesium 2.1 MG/DL (1.8-2.4); Potassium 3.2 MMOL/L (3.5-5.1); Total Protein 5.7 G/DL (6.4-8.3)
[2017-06-09] MEDS: POTASSIUM CHLORIDE RIDER 20 MEQ in PREMIX 1 EACH IV PRN ×2 (07:05→11:00)
[2017-06-09] MEDS: PIPERACILLIN/TAZOBACTAM 3.375 MG in SODIUM CHLORIDE 0.9% 100 ML IV SCH ×3 (07:05→22:11)
[2017-06-09] MEDS: LORazepam 2 MG/1 ML VIAL IV PRN ×2 (08:02→18:20)
[2017-06-09] MEDS: FUROSEMIDE 40 MG/4 ML VIAL IV SCH (09:10)
[2017-06-09] MEDS: ASPIRIN CHEW 81 MG TABLET PO SCH (09:10)
[2017-06-09] MEDS: LACOSAMIDE INJ 150 MG in SODIUM CHLORIDE 0.9% 50 ML IV SCH ×2 (09:40→20:45)
[2017-06-09] MEDS: PHENobarbital 130 MG/1 ML VIAL IV SCH ×2 (11:00→23:31)
[2017-06-09] MEDS: VANCOMYCIN INJ 2,000 MG in SODIUM CHLORIDE 0.9% 500 ML IV SCH (11:00)
[2017-06-09] MEDS: HEPARIN/NACL 0.9% 2 UNITS/ML 500 ML IV SCH (14:30)
[2017-06-09] MEDS: PANTOPRAZOLE 40 MG VIAL IV SCH (15:00)
[2017-06-09] MEDS: ENOXAPARIN 40 MG/0.4 ML SYRINGE SUBCUT SCH (15:00)
[2017-06-09] MEDS: MINERAL OIL/PETROLATUM OPH OINT 3.5 GM TUBE BOTH EYES SCH (20:35)
[2017-06-10] MEDS: ALBUTEROL/IPRATROPIUM 3 ML NEB RESP TX SCH ×4 (01:40→18:57)
[2017-06-10] MEDS: LORazepam 2 MG/1 ML VIAL IV PRN ×2 (02:22→09:15)
[2017-06-10] MEDS: VALPROIC ACID INJ 750 MG in SODIUM CHLORIDE 0.9% 100 ML IV SCH ×3 (02:24→18:30)
[2017-06-10] MEDS: niCARdipine INJ 25 MG in SODIUM CHLORIDE 0.9% 240 ML IV SCH ×2 (03:21→07:45)
[2017-06-10] MEDS: DEXTROSE 50% 25 GM/50 ML VIAL IV PRN (04:17)
[2017-06-10 04:27] LABS: ABG Base Excess -3.3 MMOL/L (-2.5-2.5); ABG Oxygen Saturation 98.2 % (95-100); ABG PCO2 29.5 MM HG (35-48); ABG PH 7.448 (7.35-7.45); ABG TCO2 20.9 MMOL/L (23-27)
[2017-06-10] MEDS: INSULIN LISPRO 100 UNIT/ML SUBCUT SCH ×5 (04:42→20:20)
[2017-06-10 04:55] LABS: Calcium 8.2 MG/DL (8.5-10.1); Osmolality,Calculated 300.7 MOS/KG (273-304); Potassium 3.3 MMOL/L (3.5-5.1)
[2017-06-10] MEDS: POTASSIUM CHLORIDE RIDER 20 MEQ in PREMIX 1 EACH IV PRN (05:09)
[2017-06-10] MEDS: PIPERACILLIN/TAZOBACTAM 3.375 MG in SODIUM CHLORIDE 0.9% 100 ML IV SCH ×3 (06:27→21:03)
[2017-06-10] MEDS: PROPOFOL 1,000 MG/100 ML BOTTLE IV SCH ×3 (06:33→21:58)
[2017-06-10] MEDS: LACOSAMIDE INJ 150 MG in SODIUM CHLORIDE 0.9% 50 ML IV SCH ×2 (09:00→20:20)
[2017-06-10] MEDS: ASPIRIN CHEW 81 MG TABLET PO SCH (09:00)
[2017-06-10] MEDS: FUROSEMIDE 40 MG/4 ML VIAL IV SCH (09:00)
[2017-06-10] MEDS: VANCOMYCIN INJ 2,000 MG in SODIUM CHLORIDE 0.9% 500 ML IV SCH (11:00)
[2017-06-10] MEDS: PHENobarbital 130 MG/1 ML VIAL IV SCH ×2 (11:05→22:05)
[2017-06-10] MEDS: HEPARIN/NACL 0.9% 2 UNITS/ML 500 ML IV SCH (14:30)
[2017-06-10] MEDS: ENOXAPARIN 40 MG/0.4 ML SYRINGE SUBCUT SCH (15:00)
[2017-06-10] MEDS: PANTOPRAZOLE 40 MG VIAL IV SCH (15:00)
[2017-06-10] MEDS: niCARdipine INJ 50 MG in SODIUM CHLORIDE 0.9% 480 ML IV SCH (18:30)
[2017-06-10] MEDS: MINERAL OIL/PETROLATUM OPH OINT 3.5 GM TUBE BOTH EYES SCH (20:22)
[2017-06-11] MEDS: ALBUTEROL/IPRATROPIUM 3 ML NEB RESP TX SCH ×4 (00:30→19:13)
[2017-06-11] MEDS: INSULIN LISPRO 100 UNIT/ML SUBCUT SCH ×7 (00:37→23:27)
[2017-06-11] MEDS: VALPROIC ACID INJ 750 MG in SODIUM CHLORIDE 0.9% 100 ML IV SCH ×3 (02:30→18:10)
[2017-06-11] MEDS: PROPOFOL 1,000 MG/100 ML BOTTLE IV SCH ×2 (04:10→06:22)
[2017-06-11 04:11] LABS: Basophils % 0.3 % (0.0-0.8); Eosinophils # 0.6 10*3/uL (0.0-0.87); Eosinophils % 4.8 % (0.00-10.9); Hematocrit 27.1 VOL% (35.7-47.0); Hemoglobin 8.3 GM/DL (12.0-16.0); Immature Granulocytes % 0.6 %; Immature Granulocytes Absolute 0.07 #; Lymphocytes # 1.8 10*3/uL (1.4-4.0); Lymphocytes % 14.5 % (21.3-54.2); Mean Corpuscular HGB Conc 30.6 GM/DL (32-36); Mean Corpuscular Hemoglobin 22 PG (27-34); Mean Corpuscular Volume 72.5 FL (87-102); Mean Platelet Volume 10.5 FL (9.6-12.0); Monocytes # 1.6 10*3/uL (0.11-0.8); Monocytes % 12.9 % (1.7-12.7); Neutrophils # 8.3 10*3/uL (1.4-7.4); Neutrophils % 66.9 % (38.7-73.9); Platelet Count 233 T/CUMM (130-400); Red Blood Count 3.74 MC/CUMM (3.8-5.5); Red Cell Distribution Width 18.6 % (9.3-17.3); White Blood Count 12.4 T/CUMM (4-12)
[2017-06-11 04:14] LABS: ABG Base Excess -4.3 MMOL/L (-2.5-2.5); ABG HCO3 20.8 MMOL/L (20-26); ABG Oxygen Saturation 99.4 % (95-100); ABG TCO2 17.9 MMOL/L (23-27)
[2017-06-11 04:27] LABS: Calcium 7.9 MG/DL (8.5-10.1); Magnesium 2.4 MG/DL (1.8-2.4); Osmolality,Calculated 304.4 MOS/KG (273-304); Potassium 3.1 MMOL/L (3.5-5.1)
[2017-06-11] MEDS: PIPERACILLIN/TAZOBACTAM 3.375 MG in SODIUM CHLORIDE 0.9% 100 ML IV SCH ×3 (05:36→21:20)
[2017-06-11] MEDS: POTASSIUM CHLORIDE RIDER 20 MEQ in PREMIX 1 EACH IV PRN ×3 (07:02→16:21)
[2017-06-11] MEDS: FUROSEMIDE 40 MG/4 ML VIAL IV SCH (09:04)
[2017-06-11] MEDS: ASPIRIN CHEW 81 MG TABLET PO SCH ×2 (09:04→09:14)
[2017-06-11] MEDS: niCARdipine INJ 50 MG in SODIUM CHLORIDE 0.9% 480 ML IV SCH (09:04)
[2017-06-11] MEDS: LACOSAMIDE INJ 150 MG in SODIUM CHLORIDE 0.9% 50 ML IV SCH ×2 (09:32→20:53)
[2017-06-11] MEDS: ASPIRIN 300 MG SUPP RECTAL SCH (09:41)
[2017-06-11] MEDS: VANCOMYCIN INJ 2,000 MG in SODIUM CHLORIDE 0.9% 500 ML IV SCH (12:19)
[2017-06-11] MEDS: PHENobarbital 130 MG/1 ML VIAL IV SCH ×2 (12:20→23:35)
[2017-06-11] MEDS: HEPARIN/NACL 0.9% 2 UNITS/ML 500 ML IV SCH (14:31)
[2017-06-11] MEDS: DEXT 5% NACL 0.45% KCL 10 MEQ 10 MEQ/1,000 ML BAG IV SCH (14:49)
[2017-06-11] MEDS: ENOXAPARIN 40 MG/0.4 ML SYRINGE SUBCUT SCH (14:49)
[2017-06-11] MEDS: PANTOPRAZOLE 40 MG VIAL IV SCH (14:50)
[2017-06-11] MEDS: MINERAL OIL/PETROLATUM OPH OINT 3.5 GM TUBE BOTH EYES SCH (20:10)
[2017-06-11] MEDS: LORazepam 2 MG/1 ML VIAL IV PRN (20:30)
[2017-06-12] MEDS: POTASSIUM CHLORIDE RIDER 20 MEQ in PREMIX 1 EACH IV PRN (00:09)
[2017-06-12] MEDS: DEXT 5% NACL 0.45% KCL 10 MEQ 10 MEQ/1,000 ML BAG IV SCH ×2 (01:03→12:40)
[2017-06-12] MEDS: VALPROIC ACID INJ 750 MG in SODIUM CHLORIDE 0.9% 100 ML IV SCH ×3 (01:18→18:19)
[2017-06-12] MEDS: ALBUTEROL/IPRATROPIUM 3 ML NEB RESP TX SCH ×4 (01:26→20:03)
[2017-06-12] MEDS: LORazepam 2 MG/1 ML VIAL IV PRN (04:18)
[2017-06-12] MEDS: INSULIN LISPRO 100 UNIT/ML SUBCUT SCH ×4 (04:33→21:31)
[2017-06-12 04:36] LABS: ABG Base Excess -1.3 MMOL/L (-2.5-2.5); ABG HCO3 21.7 MMOL/L (20-26); ABG Oxygen Saturation 97.5 % (95-100); ABG PCO2 29.5 MM HG (35-48); ABG PH 7.485 (7.35-7.45); ABG PO2 101.5 MM HG (80-95); ABG TCO2 22.6 MMOL/L (23-27)
[2017-06-12 04:44] LABS: Basophils # 0.1 10*3/uL (0.0-0.2); Basophils % 0.5 % (0.0-0.8); Eosinophils # 0.4 10*3/uL (0.0-0.87); Eosinophils % 4.7 % (0.00-10.9); Hematocrit 28.9 VOL% (35.7-47.0); Hemoglobin 8.9 GM/DL (12.0-16.0); Immature Granulocytes % 0.6 %; Immature Granulocytes Absolute 0.06 #; Lymphocytes # 1.5 10*3/uL (1.4-4.0); Lymphocytes % 16.2 % (21.3-54.2); Mean Corpuscular HGB Conc 30.8 GM/DL (32-36); Mean Corpuscular Hemoglobin 23 PG (27-34); Mean Corpuscular Volume 73.9 FL (87-102); Mean Platelet Volume 10.9 FL (9.6-12.0); Monocytes # 1.2 10*3/uL (0.11-0.8); Monocytes % 12.7 % (1.7-12.7); Neutrophils # 6.2 10*3/uL (1.4-7.4); Neutrophils % 65.3 % (38.7-73.9); Platelet Count 203 T/CUMM (130-400); Red Blood Count 3.91 MC/CUMM (3.8-5.5); Red Cell Distribution Width 18.6 % (9.3-17.3); White Blood Count 9.5 T/CUMM (4-12)
[2017-06-12] MEDS: VANCOMYCIN INJ 2,000 MG in SODIUM CHLORIDE 0.9% 500 ML IV SCH (05:00)
[2017-06-12] MEDS: PROPOFOL 1,000 MG/100 ML BOTTLE IV SCH ×3 (05:05→18:07)
[2017-06-12 05:09] LABS: Calcium 7.9 MG/DL (8.5-10.1); Magnesium 2.4 MG/DL (1.8-2.4); Osmolality,Calculated 309.2 MOS/KG (273-304); Potassium 3.7 MMOL/L (3.5-5.1)
[2017-06-12] MEDS: PIPERACILLIN/TAZOBACTAM 3.375 MG in SODIUM CHLORIDE 0.9% 100 ML IV SCH ×2 (06:36→14:00)
[2017-06-12] MEDS: LACOSAMIDE INJ 150 MG in SODIUM CHLORIDE 0.9% 50 ML IV SCH ×2 (11:34→21:32)
[2017-06-12] MEDS: FUROSEMIDE 40 MG/4 ML VIAL IV SCH (11:35)
[2017-06-12] MEDS: niCARdipine INJ 50 MG in SODIUM CHLORIDE 0.9% 480 ML IV SCH (12:45)
[2017-06-12] MEDS: PHENobarbital 130 MG/1 ML VIAL IV SCH ×2 (13:01→23:15)
[2017-06-12] MEDS: ASPIRIN 300 MG SUPP RECTAL SCH (14:00)
[2017-06-12] MEDS: METOCLOPRAMIDE 10 MG/2 ML VIAL IV SCH (18:00)
[2017-06-12] MEDS: SKIN HEALING OINT (AQUAPHOR) 50 GM TUBE TOP SCH (18:10)
[2017-06-12] MEDS: PANTOPRAZOLE 40 MG VIAL IV SCH (18:19)
[2017-06-12] MEDS: METOCLOPRAMIDE 10 MG/2 ML VIAL IM SCH ×2 (18:19→19:42)
[2017-06-12] MEDS: MINERAL OIL/PETROLATUM OPH OINT 3.5 GM TUBE BOTH EYES SCH (21:32)
[2017-06-13] MEDS: ALBUTEROL/IPRATROPIUM 3 ML NEB RESP TX SCH ×4 (00:31→19:39)
[2017-06-13] MEDS: INSULIN LISPRO 100 UNIT/ML SUBCUT SCH ×6 (00:33→21:44)
[2017-06-13] MEDS: METOCLOPRAMIDE 10 MG/2 ML VIAL IV SCH ×4 (00:34→19:20)
[2017-06-13] MEDS: VANCOMYCIN INJ 2,000 MG in SODIUM CHLORIDE 0.9% 500 ML IV SCH (00:34)
[2017-06-13] MEDS: PROPOFOL 1,000 MG/100 ML BOTTLE IV SCH ×3 (01:16→21:44)
[2017-06-13] MEDS: VALPROIC ACID INJ 750 MG in SODIUM CHLORIDE 0.9% 100 ML IV SCH ×3 (02:57→18:00)
[2017-06-13 05:05] LABS: Basophils # 0.1 10*3/uL (0.0-0.2); Basophils % 0.4 % (0.0-0.8); Eosinophils # 0.6 10*3/uL (0.0-0.87); Eosinophils % 4.5 % (0.00-10.9); Hematocrit 27.5 VOL% (35.7-47.0); Hemoglobin 8.1 GM/DL (12.0-16.0); Immature Granulocytes % 0.7 %; Immature Granulocytes Absolute 0.09 #; Lymphocytes % 15.6 % (21.3-54.2); Mean Corpuscular HGB Conc 29.5 GM/DL (32-36); Mean Corpuscular Hemoglobin 22 PG (27-34); Mean Platelet Volume 11.3 FL (9.6-12.0); Monocytes # 1.4 10*3/uL (0.11-0.8); Neutrophils # 8.7 10*3/uL (1.4-7.4); Neutrophils % 67.8 % (38.7-73.9); Platelet Count 223 T/CUMM (130-400); Red Blood Count 3.62 MC/CUMM (3.8-5.5); Red Cell Distribution Width 18.6 % (9.3-17.3); White Blood Count 12.8 T/CUMM (4-12)
[2017-06-13 05:12] LABS: INR 0.9; PT Patient Result 9.9 SECS
[2017-06-13 05:35] LABS: Calcium 7.8 MG/DL (8.5-10.1); Magnesium 2.5 MG/DL (1.8-2.4); Osmolality,Calculated 307.2 MOS/KG (273-304); Potassium 3.4 MMOL/L (3.5-5.1)
[2017-06-13] MEDS: POTASSIUM CHLORIDE RIDER 20 MEQ in PREMIX 1 EACH IV PRN ×2 (06:08→08:26)
[2017-06-13] MEDS: SKIN HEALING OINT (AQUAPHOR) 50 GM TUBE TOP SCH (08:30)
[2017-06-13] MEDS: LACOSAMIDE INJ 150 MG in SODIUM CHLORIDE 0.9% 50 ML IV SCH ×2 (09:46→21:48)
[2017-06-13] MEDS: DEXTROSE 5% NACL 0.22% 1,000 ML IV SCH ×2 (09:46→19:18)
[2017-06-13] MEDS: ceFAZolin 1,000 MG in SYRINGE 1 EACH IV SCH ×3 (10:15→22:32)
[2017-06-13] MEDS: ASPIRIN 300 MG SUPP RECTAL SCH (11:00)
[2017-06-13] MEDS: PHENobarbital 130 MG/1 ML VIAL IV SCH ×2 (12:15→23:16)
[2017-06-13] MEDS ORDERED: POTASSIUM CHLORIDE 20 MEQ TABLET PO ONE (13:40)
[2017-06-13] MEDS ORDERED: POTASSIUM CHLORIDE 20 MEQ/15 ML UDCUP PO ONE (14:30)
[2017-06-13] MEDS: PANTOPRAZOLE 40 MG VIAL IV SCH (16:42)
[2017-06-13] MEDS: MINERAL OIL/PETROLATUM OPH OINT 3.5 GM TUBE BOTH EYES SCH (22:31)
[2017-06-14] MEDS: METOCLOPRAMIDE 10 MG/2 ML VIAL IV SCH ×5 (00:33→23:31)
[2017-06-14] MEDS: INSULIN LISPRO 100 UNIT/ML SUBCUT SCH ×7 (01:07→23:57)
[2017-06-14] MEDS: ALBUTEROL/IPRATROPIUM 3 ML NEB RESP TX SCH ×4 (01:58→20:00)
[2017-06-14] MEDS: VALPROIC ACID INJ 750 MG in SODIUM CHLORIDE 0.9% 100 ML IV SCH ×3 (02:33→20:16)
[2017-06-14 03:55] LABS: ABG Base Excess -1.2 MMOL/L (-2.5-2.5); ABG HCO3 23.4 MMOL/L (20-26); ABG Oxygen Saturation 97.4 % (95-100); ABG PCO2 34.8 MM HG (35-48); ABG PH 7.424 (7.35-7.45); ABG PO2 90.9 MM HG (80-95); ABG TCO2 21.2 MMOL/L (23-27)
[2017-06-14] MEDS: ceFAZolin 1,000 MG in SYRINGE 1 EACH IV SCH ×4 (04:25→21:05)
[2017-06-14 05:32] LABS: Alanine Aminotransferase 32 U/L (13-56); Albumin 1.9 G/DL (3.4-5.0); Alkaline Phosphatase 93 U/L (45-117); Aspartate Amino Transferase 35 U/L (0-37); Bilirubin,Total < 0.39 MG/DL (0.2-1.0); Blood Urea Nitrogen 10 MG/DL (7-18); Calcium 7.9 MG/DL (8.5-10.1); Glucose 104 MG/DL (74-106); Osmolality,Calculated 297.9 MOS/KG (273-304); Potassium 3.5 MMOL/L (3.5-5.1); Sodium 151 MMOL/L (136-145)
[2017-06-14] MEDS: ENOXAPARIN 40 MG/0.4 ML SYRINGE SUBCUT SCH (07:11)
[2017-06-14] MEDS: DEXTROSE 5% NACL 0.22% 1,000 ML IV SCH ×3 (07:11→20:21)
[2017-06-14 09:08] LABS: Hematocrit 27.2 VOL% (35.7-47.0)
[2017-06-14] MEDS: PROPOFOL 1,000 MG/100 ML BOTTLE IV SCH ×2 (09:49→20:18)
[2017-06-14] MEDS: LACOSAMIDE INJ 150 MG in SODIUM CHLORIDE 0.9% 50 ML IV SCH ×2 (09:52→21:03)
[2017-06-14] MEDS: PHENobarbital 130 MG/1 ML VIAL IV SCH ×2 (11:20→23:30)
[2017-06-14] MEDS ORDERED: PROPOFOL 200 MG/20 ML VIAL IV ONE (11:40)
[2017-06-14] MEDS: LORazepam 2 MG/1 ML VIAL IV PRN (14:19)
[2017-06-14] MEDS: SKIN HEALING OINT (AQUAPHOR) 50 GM TUBE TOP SCH (19:23)
[2017-06-14] MEDS: ASPIRIN 300 MG SUPP RECTAL SCH (19:23)
[2017-06-14] MEDS: PANTOPRAZOLE 40 MG VIAL IV SCH (20:15)
[2017-06-14] MEDS: MINERAL OIL/PETROLATUM OPH OINT 3.5 GM TUBE BOTH EYES SCH (21:02)
[2017-06-15] MEDS: VALPROIC ACID INJ 750 MG in SODIUM CHLORIDE 0.9% 100 ML IV SCH ×3 (02:42→18:33)
[2017-06-15] MEDS: ALBUTEROL/IPRATROPIUM 3 ML NEB RESP TX SCH ×4 (03:00→19:51)
[2017-06-15] MEDS: PROPOFOL 1,000 MG/100 ML BOTTLE IV SCH ×4 (03:35→21:16)
[2017-06-15 04:14] LABS: Basophils % 0.2 % (0.0-0.8); Eosinophils # 0.6 10*3/uL (0.0-0.87); Eosinophils % 4.4 % (0.00-10.9); Hematocrit 25.9 VOL% (35.7-47.0); Hemoglobin 7.6 GM/DL (12.0-16.0); Immature Granulocytes % 0.7 %; Immature Granulocytes Absolute 0.09 #; Lymphocytes # 1.6 10*3/uL (1.4-4.0); Lymphocytes % 11.5 % (21.3-54.2); Mean Corpuscular HGB Conc 29.3 GM/DL (32-36); Mean Corpuscular Hemoglobin 22 PG (27-34); Mean Platelet Volume 10.5 FL (9.6-12.0); Monocytes # 1.3 10*3/uL (0.11-0.8); Monocytes % 9.7 % (1.7-12.7); Neutrophils # 9.9 10*3/uL (1.4-7.4); Neutrophils % 73.5 % (38.7-73.9); Platelet Count 271 T/CUMM (130-400); Red Blood Count 3.41 MC/CUMM (3.8-5.5); Red Cell Distribution Width 18.5 % (9.3-17.3); White Blood Count 13.5 T/CUMM (4-12)
[2017-06-15 04:22] LABS: ABG Base Excess 0.5 MMOL/L (-2.5-2.5); ABG HCO3 24.2 MMOL/L (20-26); ABG Oxygen Saturation 97.2 % (95-100); ABG PCO2 34.7 MM HG (35-48); ABG PH 7.461 (7.35-7.45); ABG PO2 95.2 MM HG (80-95); ABG TCO2 25.2 MMOL/L (23-27); Allen Test Positive; Pt O2 Delivery Device Ventilator
[2017-06-15 04:47] LABS: Calcium 7.1 MG/DL (8.5-10.1); Osmolality,Calculated 303.4 MOS/KG (273-304)
[2017-06-15] MEDS: DEXTROSE 5% NACL 0.22% 1,000 ML IV SCH (04:54)
[2017-06-15] MEDS: ceFAZolin 1,000 MG in SYRINGE 1 EACH IV SCH ×4 (04:54→22:11)
[2017-06-15] MEDS: ENOXAPARIN 40 MG/0.4 ML SYRINGE SUBCUT SCH (04:56)
[2017-06-15] MEDS: METOCLOPRAMIDE 10 MG/2 ML VIAL IV SCH ×3 (05:03→17:36)
[2017-06-15] MEDS: INSULIN LISPRO 100 UNIT/ML SUBCUT SCH ×5 (05:04→20:18)
[2017-06-15] MEDS: LORazepam 2 MG/1 ML VIAL IV PRN (07:57)
[2017-06-15] MEDS ORDERED: DILTIAZEM 50 MG/10 ML VIAL IV ONE (08:10)
[2017-06-15] MEDS ORDERED: DILTIAZEM 100 MG VIAL.ADD IV ONE (08:34)
[2017-06-15] MEDS: DEXTROSE 5% KCL 20 MEQ 20 MEQ/1,000 ML BAG IV SCH ×3 (08:38→22:12)
[2017-06-15] MEDS: DILTIAZEM INJ 100 MG in SODIUM CHLORIDE 0.9% 100 ML IV SCH (08:49)
[2017-06-15] MEDS: LACOSAMIDE INJ 150 MG in SODIUM CHLORIDE 0.9% 50 ML IV SCH ×2 (09:00→21:13)
[2017-06-15] MEDS: SKIN HEALING OINT (AQUAPHOR) 50 GM TUBE TOP SCH (09:36)
[2017-06-15] MEDS: ASPIRIN 300 MG SUPP RECTAL SCH (09:36)
[2017-06-15] MEDS: PHENobarbital 130 MG/1 ML VIAL IV SCH ×2 (10:30→22:11)
[2017-06-15] MEDS: METOPROLOL TARTRATE 50 MG TABLET PO SCH ×2 (10:59→21:13)
[2017-06-15] MEDS ORDERED: SODIUM CHLORIDE 0.9% 1,000 ML IV PRN (13:21)
[2017-06-15] MEDS: POTASSIUM CHLORIDE 20 MEQ/15 ML UDCUP PO SCH ×2 (14:00→15:31)
[2017-06-15] MEDS: PANTOPRAZOLE 40 MG VIAL IV SCH (16:00)
[2017-06-15] MEDS: DILTIAZEM 60 MG TABLET PO SCH ×2 (17:36→21:13)
[2017-06-15] MEDS: MINERAL OIL/PETROLATUM OPH OINT 3.5 GM TUBE BOTH EYES SCH (21:14)
[2017-06-16] MEDS: INSULIN LISPRO 100 UNIT/ML SUBCUT SCH ×4 (01:06→14:11)
[2017-06-16] MEDS: DEXTROSE 5% KCL 20 MEQ 20 MEQ/1,000 ML BAG IV SCH ×2 (01:07→07:24)
[2017-06-16] MEDS: METOCLOPRAMIDE 10 MG/2 ML VIAL IV SCH ×3 (01:07→14:12)
[2017-06-16] MEDS: ALBUTEROL/IPRATROPIUM 3 ML NEB RESP TX SCH ×3 (01:10→13:16)
[2017-06-16 01:32] LABS: Calcium 7.4 MG/DL (8.5-10.1); Osmolality,Calculated 287.7 MOS/KG (273-304)
[2017-06-16] MEDS: VALPROIC ACID INJ 750 MG in SODIUM CHLORIDE 0.9% 100 ML IV SCH ×2 (01:33→09:37)
[2017-06-16 03:52] LABS: ABG Base Excess -1.1 MMOL/L (-2.5-2.5); ABG HCO3 23.5 MMOL/L (20-26); ABG Oxygen Saturation 96.7 % (95-100); ABG PCO2 35.7 MM HG (35-48); ABG PH 7.415 (7.35-7.45); ABG TCO2 19.5 MMOL/L (23-27)
[2017-06-16] MEDS: ceFAZolin 1,000 MG in SYRINGE 1 EACH IV SCH ×3 (04:11→15:10)
[2017-06-16 04:17] LABS: Basophils % 0.2 % (0.0-0.8); Eosinophils # 0.5 10*3/uL (0.0-0.87); Eosinophils % 2.8 % (0.00-10.9); Hematocrit 29.2 VOL% (35.7-47.0); Immature Granulocytes % 0.8 %; Immature Granulocytes Absolute 0.14 #; Lymphocytes # 2.3 10*3/uL (1.4-4.0); Lymphocytes % 12.6 % (21.3-54.2); Mean Corpuscular HGB Conc 30.8 GM/DL (32-36); Mean Corpuscular Hemoglobin 23 PG (27-34); Mean Corpuscular Volume 74.9 FL (87-102); Mean Platelet Volume 10.5 FL (9.6-12.0); Monocytes # 1.6 10*3/uL (0.11-0.8); Monocytes % 8.6 % (1.7-12.7); Neutrophils # 13.6 10*3/uL (1.4-7.4); Platelet Count 289 T/CUMM (130-400); Red Cell Distribution Width 18.5 % (9.3-17.3); White Blood Count 18.1 T/CUMM (4-12)
[2017-06-16] MEDS: PROPOFOL 1,000 MG/100 ML BOTTLE IV SCH (05:45)
[2017-06-16] MEDS ORDERED: LIDOCAINE 2%/EPI 20 ML VIAL ONE (07:42)
[2017-06-16 08:01] LABS: Calcium 7.8 MG/DL (8.5-10.1); Potassium 3.8 MMOL/L (3.5-5.1)
[2017-06-16] MEDS: SKIN HEALING OINT (AQUAPHOR) 50 GM TUBE TOP SCH (09:35)
[2017-06-16] MEDS: ASPIRIN 300 MG SUPP RECTAL SCH (09:55)
[2017-06-16] MEDS: METOPROLOL TARTRATE 50 MG TABLET PO SCH (09:56)
[2017-06-16] MEDS: DILTIAZEM 60 MG TABLET PO SCH ×2 (09:56→14:30)
[2017-06-16] MEDS: LACOSAMIDE INJ 150 MG in SODIUM CHLORIDE 0.9% 50 ML IV SCH (09:56)
[2017-06-16] MEDS: DILTIAZEM INJ 100 MG in SODIUM CHLORIDE 0.9% 100 ML IV SCH (10:10)
[2017-06-16] MEDS: PHENobarbital 130 MG/1 ML VIAL IV SCH (11:34)
[2017-06-16] MEDS ORDERED: MORPHINE 2 MG/1 ML SYRINGE ONE (12:04)
[2017-06-16] MEDS ORDERED: MORPHINE 2 MG/1 ML SYRINGE IV ONE (12:15)
[2017-06-16] MEDS ORDERED: LIDOCAINE 2% 20 ML VIAL RESP TX ONE (12:29)
[2017-06-16] MEDS ORDERED: LIDOCAINE 1% 20 ML VIAL MISC INJ ONE (12:29)
[2017-06-16] MEDS: PANTOPRAZOLE 40 MG VIAL IV SCH (15:23)
[2017-06-16 16:28] VITALS: BP 140/81
== END 2017-06-16 16:20 | DRG 4 ==
LOC: N.ED 02:46 → N.EDINP 05:24 → SUPCPDRO 05:24 → SUATTDRO 05:24 → N.ICU 05:51
PROVIDERS: ADMIT Internal Medicine; ATTEND Internal Medicine
PROC: EGDWPEG (ICD-10-PCS; 2017-06-14 11:35)